=== PATIENT | female | born 1960 | race Caucasian/White ===

== ENCOUNTER → 2016-06-27 | Outpatient (CLI) | payer MEDICAID ==
--- NOTE | 2016-06-27 11:48 | XR ---
EXAMINATION TYPE: XR Hip Complete LT DATE OF EXAM: 06/27/2016 11:13 AM CLINICAL HISTORY: pain TECHNIQUE: AP and frogleg views of the left hip are obtained. COMPARISON: None. FINDINGS: There is no acute fracture/dislocation evident. The joint space appears within normal li mits. The overlying soft tissue appears unremarkable. IMPRESSION: 1. There is no acute fracture or dislocation.ICD 10 NO FRACTURE, INITIAL EVALUATION
== END ==
LOC: RADXRMAIN 10:39
PROVIDERS: ATTEND Family Medicine
DX: M25.552 Pain in left hip (principal)
CPT/HCPCS: 73502

== ENCOUNTER → 2016-08-03 | Outpatient (CLI) | payer MEDICAID ==
--- NOTE | 2016-08-03 11:06 | XR ---
EXAMINATION TYPE: XR foot complete RT DATE OF EXAM: 08/03/2016 10:26 AM CLINICAL HISTORY: Right foot pain and swelling, history of surgery 6 years ago, current study is foll ow up after more recent surgery TECHNIQUE: Weightbearing Frontal, lateral, and oblique images of the right foot are obtained. COMPARISON: Bilateral foot x-ray January 11, 2016. FINDINGS: There is persistent hallux valgus deformity first metatarsophalangeal joint. There is heal ed osteotomy with fixating screw in the first proximal phalanx. Alignment is stable. There is persistent distal osteotomy at level of the third proximal phalanx. Alignment at this level is stable. There is interval surgery with new ossific fusion or bridging at the second PIP joint. Alignment is s atisfactory. Remainder of right foot shows demineralization. There is moderate to severe spurring at mid foot leve l seen most prominent on lateral view with mild to moderate joint space loss. There are small size daniel perior and inferior calcaneal spurs redemonstrated. Slight pes planus deformity is seen on nonweightb earing lateral view. IMPRESSION: Interval surgery second toe with ossific fusion and satisfactory alignment now present.
== END | disposition home or self-care (01) ==
LOC: RADXRMAIN 10:04
PROVIDERS: ATTEND Podiatrist Foot & Ankle Surgery
DX: M25.80 Other specified joint disorders, unspecified joint (principal); Z98.890 Other specified postprocedural states

== ENCOUNTER → 2017-02-09 | Outpatient (CLI) | payer MEDICAID ==
--- NOTE | 2017-02-09 23:17 | MR ---
EXAMINATION TYPE: MR lumbar spine wo con DATE OF EXAM: 02/09/2017 COMPARISON: NONE HISTORY: Low back pain with Left leg pain x1 year TECHNIQUE: Multiplanar, multisequence images of the lumbar spine were acquired. Findings There is 1 cm anterior subluxation of L5 in relation S1. There is narrowing of disc spaces throughout the lumbar spine. There is developmentally adequate spinal canal and no spinal stenosis. There is sm all posterior disc bulge at L4-5. Lumbar nerve roots appear normal. The neural foramina are fairly we ll-maintained. There is probably L5 spondylolysis. There is no lumbar paraspinal mass. I see no focal bone destruction. IMPRESSION: Multilevel spondylosis. First-degree L5-S1 spondylolisthesis with probable L5 spondylolysis. No acute fracture. No spinal stenosis.
== END | disposition home or self-care (01) ==
LOC: RADMRIMAIN 16:59
PROVIDERS: ATTEND Psychiatry & Neurology Neurology
DX: M43.17 Spondylolisthesis, lumbosacral region (principal); M47.816 Spondylosis without myelopathy or radiculopathy, lumbar region
CPT/HCPCS: 72148

== ENCOUNTER → 2017-05-29 | Outpatient (CLI) | payer MEDICAID ==
--- NOTE | 2017-05-29 22:32 | MR ---
EXAMINATION TYPE: MR shoulder RT wo con DATE OF EXAM: 05/29/2017 COMPARISON: Outside radiographs 05/10/2017 HISTORY: 57-year-old female with right shoulder pain TECHNIQUE: Multiplanar, multisequence imaging of the right shoulder is performed without contrast. FINDINGS: There is linear intrasubstance signal involving the intracapsular portion of the long head biceps ten don. Intrasubstance signal extends along the extracapsular portion and there is slight medial subluxa tion long the upper bicipital groove. There is intermediate signal soft tissue thickening along the b icipital groove. Heterogeneous signal of the subscapularis tendon with attritional tearing of the superior half fibers . The majority of the subscapularis tendon remains intact. Moderate to severe joint space narrowing with marginal spurring at the acromioclavicular joint. Infer ior spurring just contacts the myotendinous junction of the supraspinatus tendon. There is bursal sided fraying of the cuff and extensive heterogeneous thickening involving both supra spinatus and infraspinatus tendons. Irregular tear involves the junction of the supraspinatus and inf raspinatus tendons measuring 1.1 cm AP and 1 cm long and is located proximal to the footprint, refer to coronal T2 FS image 17. Heterogeneous intermediate signal intensity material fills the glenohumeral joint, the superior subsc apularis recess, and extends into the superior myotendinous junction of the infraspinatus tendon wher e a masslike appearance is present measuring 2.1 x 1.2 x 2.2 cm. No calcifications are seen on radiog raphs. There is mild thinning of inferior humeral head articular cartilage and a moderate effusion and assoc iated synovitis. There is abnormal signal extending into the superior posterior labrum with a a 9 x 4 mm para labral c yst, sagittal T2 FS image 11 and coronal T2 FS image 16. Mild effusion within the subacromial/subdeltoid bursa and additional mild effusion in the subcoracoid bursa. No significant atrophy of the rotator cuff musculature. No Hill-Sachs deformity or os acromiale. Patchy red marrow hyperplasia is present and can be seen in setting of anemia, obesity, smoking, and chronic disease. No suspicious bone marrow replacement. IMPRESSION: 1. Severe diffuse rotator cuff tendinosis. There is an irregular tear proximal to the footprint at th e junction of the supraspinatus and infraspinatus tendons measuring 1.1 x 1.0 cm that is suspected to have full thickness extension. No rotator cuff muscle atrophy. 2. Mild attritional tearing of the superior half subscapularis tendon allowing slight medial subluxat ion of the long head biceps tendon. 3. Linear intrasubstance tear of the long head biceps tendon. Small SLAP tear and a 9 mm paralabral c yst. 4. Moderate glenohumeral joint effusion, mild bursal effusion, and a moderate to severe synovitis. No dular synovitis and inflammatory arthropathy such as RA are not excluded from the differential. Clini shellie correlate. 5. Moderate to severe AC joint OA with a prominent inferior spur.
== END | disposition home or self-care (01) ==
LOC: RADMRIMAIN 09:34
PROVIDERS: ATTEND Orthopaedic Surgery
DX: M25.511 Pain in right shoulder (principal); M65.9 Synovitis and tenosynovitis, unspecified; M19.011 Primary osteoarthritis, right shoulder

== ENCOUNTER → 2017-06-26 | Outpatient (CLI) | payer MEDICAID | END | disposition home or self-care (01) | LOC: LABWHC1 08:42 | PROVIDERS: ATTEND Internal Medicine Cardiovascular Disease | DX: E78.5 Hyperlipidemia, unspecified (principal) | CPT/HCPCS: 36415; 83704 ==

== ENCOUNTER → 2017-09-18 | Outpatient (CLI) | payer MEDICAID ==
[2017-09-18 08:43] LABS: Basophils # (A) 0.1 k/uL (0-0.2); Basophils % (A) 1 %; Eosinophils # (A) 0.5 k/uL (0-0.7); Eosinophils % (A) 12 %; HCT 41.6 % (34.0-46.0); HGB 14.3 gm/dL (11.4-16.0); Lymphocytes # (A) 1.7 k/uL (1.0-4.8); Lymphocytes % (A) 39 %; MCH 31.4 pg (25.0-35.0); MCHC 34.4 g/dL (31.0-37.0); MCV 91.3 fL (80.0-100.0); Mean Platelet Volume 6.9; Monocytes # (A) 0.3 k/uL (0-1.0); Monocytes % (A) 7 %; Neutrophils # (A) 1.7 k/uL (1.3-7.7); Neutrophils % (A) 39 %; Platelet Count 227 k/uL (150-450); RBC 4.56 m/uL (3.80-5.40); RDW 12.7 % (11.5-15.5); WBC 4.4 k/uL (3.8-10.6)
[2017-09-18 09:28] LABS: Potassium 4.3 mmol/L (3.5-5.1)
== END | disposition home or self-care (01) ==
LOC: LABPAT 07:53
PROVIDERS: ATTEND Orthopaedic Surgery
DX: Z01.812 Encounter for preprocedural laboratory examination (principal); M75.41 Impingement syndrome of right shoulder; Z01.818 Encounter for other preprocedural examination
CPT/HCPCS: 36415; 80051; 85025; 93005

== ENCOUNTER 2017-10-03 08:19 | Day surgery (SDC) | payer MEDICAID ==
[2017-09-26 17:17] VITALS: BMI 26.6
--- NOTE | 2017-10-02 13:44 | HP ---
HISTORY AND PHYSICAL DATE OF SURGERY: 10/03/2017 Christine Rodriguez is a 57-year-old patient seen with progressive right shoulder pain. Treatment options were discussed. She elected to proceed with right shoulder arthroscopy. Consent was obtained. PAST MEDICAL HISTORY: Depression, hyperlipidemia. PAST SURGICAL HISTORY: Carpal tunnel release, foot surgery. DAILY MEDICATIONS: 1. Atorvastatin. 2. Cyclobenzaprine. 3. Multivitamins. ALLERGIES: Allergies are DILAUDID. SOCIAL HISTORY: Patient denies current tobacco use. PHYSICAL EVALUATION: Physical evaluation right shoulder: Flexion 120 degrees. Abduction is 90 degrees. External rotation is 45 degrees with pain and weakness. Tenderness along the anterior lateral acromion and rotator cuff insertion. Impingement positive at 90 degrees. Drop- arm sign positive. Distal neurovascular exam intact. RADIOGRAPHS: Radiographs of the right shoulder revealed acromioclavicular joint osteoarthritis, cystic changes of the tuberosity. Right shoulder MRI revealed rotator cuff tear, biceps tear, labral tear and acromioclavicular joint osteoarthritis. IMPRESSION: 1. Right shoulder impingement with rotator cuff tear. 2. Right shoulder acromioclavicular joint osteoarthritis. 3. Depression. 4. Hyperlipidemia. PLAN: Right shoulder arthroscopy, subacromial decompression, possible arthroscopic rotator cuff repair, probable biceps tendon release and debridement. MMODL / IJN: [id number] /
[~2017-10-03 08:19] MED LIST: ONDANSETRON 4 MG/2 ML VIAL IVP PRN; ceFAZolin IN SWFI 2 GM/20 ML SYRINGE IVP ONE; fentaNYL (PF) 50 MCG/ML 2 ML AMP IV PRN
[2017-10-03 09:07] VITALS: RESP 16
[2017-10-03] MEDS: LACTATED RINGERS 1,000 ML IV SCH ×2 (09:07→12:30)
[2017-10-03] MEDS ORDERED: MIDAZOLAM 2 MG/2 ML VIAL ONE ×2 (09:15→10:44)
[2017-10-03] MEDS ORDERED: ONDANSETRON 4 MG/2 ML VIAL ONE (09:15)
[2017-10-03] MEDS ORDERED: ROPIVACAINE 5 MG/ML 30 ML VIAL ONE (10:44)
[2017-10-03] MEDS ORDERED: LIDOCAINE 1% INJ 10MG/ML (20 ML MDV) ONE (10:44)
[2017-10-03] MEDS ORDERED: fentaNYL (PF) 50 MCG/ML 2 ML AMP ONE (10:44)
[2017-10-03] MEDS ORDERED: SUCCINYLCHOLINE CHLORIDE 100 MG/5 ML SYR IV ONE (10:44)
[2017-10-03] MEDS ORDERED: PROPOFOL 10 MG/ML 20 ML VIAL IV ONE (10:44)
--- NOTE | 2017-10-03 12:13 | P.OP ---
Date of Procedure: 10/03/17 Preoperative Diagnosis: Right shoulder impingement Postoperative Diagnosis: 1. Right shoulder rotator cuff tear 2. Right shoulder impingement 3. Right shoulder acromioclavicular joint osteoarthritis 4. Right shoulder partial long head biceps tendon tear 5. Right shoulder superficial labral tear Procedure(s) Performed: 1. Right shoulder arthroscopic rotator cuff repair 2. Right shoulder arthroscopic subacromial decompression 3. Right shoulder arthroscopic Stephanie procedure 4. Right shoulder arthroscopic biceps tenotomy 5. Right shoulder arthroscopic debridement labral tear Implants: 15.5 Arthrex swivel lock anchor Anesthesia: GETA, regional (Interscalene block) Surgeon: Crow Ribeiro Estimated Blood Loss (ml): 10 Pathology: none sent Condition: stable Disposition: PACU Indications for Procedure: 57-year-old patient seen with progressive right shoulder pain. After having treatment options discussed, she elected to proceed with arthroscopy. Operative Findings: see description of procedure Description of Procedure: Patient underwent a shoulder block by department of anesthesia. The patient was then taken to the operative suite. The patient underwent a general anesthetic by the department of anesthesia. The patient was placed into a lateral position and secured. There was appropriate padding of the bony prominence. Right shoulder was then prepped and draped in normal sterile orthopedic fashion. We placed the extremity in 10 pounds of longitudinal traction. A posterior incision was now made for a posterior working portal site. The trocar and cannula were inserted into the glenohumeral joint. Arthroscopy was initiated. Spinal needle was now inserted anteriorly, to ascertain the anterior working portal site. An incision was now made in that area, a trocar was inserted followed by a probe. There was superficial tearing of the superior labrum. There was no obvious rotator cuff tear visualized from the glenohumeral side. There was partial tearing long head biceps tendon with some hyperemia. The remaining labrum appeared intact. There were mild grade 1 chondromalacia changes with no osteochondral tears. I performed a biceps tenotomy. I debrided the superficial labral tear down to stable tissue. Instruments were removed from the glenohumeral joint. Utilizing the posterior working portal site, the trocar and cannula were inserted into the subacromial space. Arthroscopy initiated. I made an incision 2 fingerbreadths lateral to the acromion. I introduced my trocar followed by my ArthroCare ablator. I now began ablating thick subacromial bursal tissue, which exposed the undersurface of the anterior acromion. This was diminished subacromial space. There was a very prominent anterior acromion. A motorized bur was introduced and a subacromial decompression was performed. I also excised some osteophytes off the inferior aspect of the distal clavicle. The AC joint was visualized and noted to be fairly arthritic. Our motorized bur was introduced in the anterior portal site and a Stephanie procedure was performed without difficulty, decompressing the AC joint nicely. I turned my attention to the rotator cuff. There was a rotator cuff tear visualized along the distal supraspinatus. I debrided the margins gained down the stable tendon tissue. The tear measured about 1.5 cm. I abraded the footprint with a motorized bur. I passed 2 everted mattress sutures through good bites of rotator cuff tendon. I repaired the tendon right back to the footprint with one single 5.5 Arthrex swivel lock anchor. This compressed the tendon along the footprint nicely. Suture limbs were clipped. The repair was probed and found to be stable. I injected 1 mL Renue intra-articular. Instruments now removed from the portal sites. All portal sites were approximated with nylon sutures. Sterile dressings were applied followed by a shoulder immobilizer. The patient was awakened, transferred to a bed, and taken to recovery in stable condition.
[2017-10-03 12:22] VITALS: TEMP 97
[2017-10-03 13:32] VITALS: BP 119/78; PULSE 64
--- NOTE | 2017-10-03 19:45 | P.ONQ ---
Anesthesiology Proc Note - PNB - Peripheral Nerve Block Performed Right Interscalene Procedure Start Time: 09:47 Procedure Stop Time: 10:02 Indication: Acute Post-Operative Pain, Requested by physician (Gema) Sedation Type: Sedate with meaningful contact maintained Preparation: Sterile Prep Position: Supine Catheter: None Needle Types: Other (see comment) (Efe) Needle Size: 50mm (2") Needle Gauge: 21 Technique: Ultrasound Blood Aspirated: No Pain Paresthesia on Injection Noted: No Resistance on Injection: Normal Events: Uneventful and Well Tolerated (0.5% Ropivacaine 14cc 2% Lidocaine with 1 :200,000 epi 14cc)
== END 2017-10-03 14:27 | disposition home or self-care (01) ==
LOC: OR 08:19
PROVIDERS: ATTEND Orthopaedic Surgery
DX: M75.101 Unspecified rotator cuff tear or rupture of right shoulder, not specified as traumatic (principal); M75.41 Impingement syndrome of right shoulder; M19.011 Primary osteoarthritis, right shoulder; S46.111A Strain of muscle, fascia and tendon of long head of biceps, right arm, initial encounter; S43.491A Other sprain of right shoulder joint, initial encounter; X58.XXXA Exposure to other specified factors, initial encounter; M94.211 Chondromalacia, right shoulder; M25.711 Osteophyte, right shoulder; F32.9 Major depressive disorder, single episode, unspecified; E78.5 Hyperlipidemia, unspecified; G43.909 Migraine, unspecified, not intractable, without status migrainosus; Z79.899 Other long term (current) drug therapy; Z79.1 Long term (current) use of non-steroidal anti-inflammatories (NSAID); Z88.5 Allergy status to narcotic agent; Z87.891 Personal history of nicotine dependence
CPT/HCPCS: 64415; 29824; 29827; 29826; C1713; C1765; J2250; J2405; J2001; J3010; J2795; J0330; J2704; J0690

== ENCOUNTER → 2018-03-14 | Outpatient (CLI) | payer MEDICAID ==
--- NOTE | 2018-03-18 09:34 | MM ---
Reason for exam: screening (asymptomatic). Last mammogram was performed 2 years ago. History: Patient is postmenopausal. Excisional biopsy of the left breast, 2003. Physical Findings: A clinical breast exam by your physician is recommended on an annual basis and results should be correlated with mammographic findings. MG 3D Screening Mammo W/Cad Bilateral CC and MLO view(s) were taken. Prior study comparison: March 16, 2016, bilateral MG screening mammo w CAD. September 03, 2014, bilateral MG screening mammo w CAD. The breast tissue is heterogeneously dense. This may lower the sensitivity of mammography. No significant changes when compared with prior studies. ASSESSMENT: Benign, BI-RAD 2 RECOMMENDATION: Routine screening mammogram of both breasts in 1 year.
== END | disposition home or self-care (01) ==
LOC: RADMAMWWP 13:08
PROVIDERS: ATTEND Internal Medicine Geriatric Medicine
DX: Z12.31 Encounter for screening mammogram for malignant neoplasm of breast (principal)
CPT/HCPCS: 77063; 77067

== ENCOUNTER → 2018-10-15 | Outpatient (CLI) | payer MEDICAID ==
--- NOTE | 2018-10-15 14:45 | BD ---
EXAMINATION TYPE: Axial Bone Density DATE OF EXAM: 10/15/2018 COMPARISON: 01/08/2012 CLINICAL HISTORY: disorder of bone Height: 5'6 Weight: 174 FRAX RISK QUESTIONS: History of Fracture in Adulthood: y Secondary Osteoporosis: RISK FACTORS HISTORY OF: Family History of Osteoporosis: y Active: n Postmenopausal woman: y MEDICATIONS: Additional Medications: cholesterol, migraines, Additional History: EXAM MEASUREMENTS: Bone mineral densitometry was performed using the Dasdak System. Bone mineral density as measured about the Lumbar spine is: ----- L1-L4(G/cm2): 1.074 T Score Values are as follows: ----- L2: -1.3 ----- L3: -1.6 ----- L4: -0.7 ----- L1-L4: -0.9 Bone mineral density has: Decreased -3.7% since study of: 01/08/2012 Bone mineral density about the R hip (g/cm2): 0.962 Bone mineral density about the L hip (g/cm2): 0.959 T Score values are as follows: -----R Neck: -0.5 -----L Neck: -0.6 -----R Total: -0.5 -----L Total: -0.3 Bone mineral density has: Decreased -3.8% since study of: 01/08/2012 IMPRESSION: Osteopenia (T Score between -2.5 and -1). There is slightly increased risk of fracture and the patient may be considered for treatment. Re-Screen 2-5 years. NOTE: T-SCORE=SD OF THE YOUNG ADULT MEAN.
== END | disposition home or self-care (01) ==
LOC: RADBDWWP 13:05
PROVIDERS: ATTEND Obstetrics & Gynecology
DX: M85.88 Other specified disorders of bone density and structure, other site (principal)
CPT/HCPCS: 77080

== ENCOUNTER → 2021-02-01 | Outpatient (CLI) | payer MEDICAID ==
--- NOTE | 2021-02-01 09:14 | XR ---
EXAMINATION TYPE: XR Hip Complete LT DATE OF EXAM: 02/01/2021 COMPARISON: For 1117 HISTORY: Pain TECHNIQUE: 2 views submitted FINDINGS: There is no evidence of erosive change or acute fracture. Mild axial narrowing of the joint space. Hypertrophic changes involving the greater trochanter. Ostei tis pubis condensans. IMPRESSION: 1. Mild arthropathy. Hypertrophic spur along the greater trochanter could be associated with trochant james bursitis correlate clinically and with MRI as clinically warranted. Findings similar to prior ex am.
--- NOTE | 2021-02-01 09:15 | XR ---
EXAM TYPE: LUMBAR SPINE X RAY SERIES COMPARISON: NONE HISTORY: Pain TECHNIQUE: 3 views are submitted. FINDINGS: Alignment is anatomic. The pedicles are intact. The transverse processes are intact. There is hype rtrophic and degenerative changes spine with facet arthropathy noted involving the mid and lower lumb ar spine. A grade 1 anterolisthesis of L5 and S1 suspected bilateral spondylolysis. Calcification lef t upper quadrant could represent 5 mm left renal calculus. IMPRESSION: 1. Multilevel degenerative disc disease and facet arthropathy with grade 1 anterolisthesis L4 on L5 a nd L5 on S1. Suspect bilateral spondylolysis L5. 2. Probable 5 mm left renal calculus.
[2021-02-01 15:15] LABS: HCT 41.5 % (37.2-46.3); HGB 13.9 g/dL (12.0-15.0); MCH 31.6 pg (27.0-32.0); MCHC 33.5 g/dL (32.0-37.0); MCV 94.3 fL (80.0-97.0); Mean Platelet Volume 10.4 fL (9.5-12.2); Platelet Count 227 X 10*3/uL (140-440); RDW 12.5 % (11.5-14.5); WBC 3.67 X 10*3/uL (4.50-10.00)
[2021-02-01 18:39] LABS: ALT 22 U/L (8-44); AST 22 U/L (13-35); African American GFR (CKD) 81.1 (60.0-200.0); Albumin 4.6 g/dL (3.8-4.9); Alkaline Phosphatase 77 U/L (41-126); BUN/Creat Ratio 17.22 Ratio (12.00-20.00); Blood Urea Nitrogen 15.5 mg/dL (9.0-27.0); Calcium 9.4 mg/dL (8.7-10.3); Carbon Dioxide 19.5 mmol/L (21.6-31.8); Chloride 110 mmol/L (96-109); Chol/HDL Ratio 2.95 Ratio; Glucose 102 mg/dL (70-110); LDL Cholesterol,Calculated 107.9 mg/dL (0.0-131.0); Potassium 4.1 mmol/L (3.5-5.5); Sodium 143 mmol/L (135-145); Total Protein 6.6 g/dL (6.2-8.2)
== END | disposition home or self-care (01) ==
LOC: LABWHC1 08:15
PROVIDERS: ATTEND Family Medicine
DX: Z00.00 Encounter for general adult medical examination without abnormal findings (principal); E55.9 Vitamin D deficiency, unspecified; M19.90 Unspecified osteoarthritis, unspecified site; M79.605 Pain in left leg
CPT/HCPCS: 36415; 72100; 73502; 80053; 80061; 82306; 83036; 85027

== ENCOUNTER → 2021-03-01 | Outpatient (CLI) | payer MEDICAID ==
--- NOTE | 2021-03-03 11:46 | MM ---
Reason for exam: screening (asymptomatic). Last mammogram was performed 3 years ago. History: Patient is postmenopausal. Excisional biopsy of the left breast, 2003. Physical Findings: A clinical breast exam by your physician is recommended on an annual basis and results should be correlated with mammographic findings. MG 3D Screening Mammo W/Cad Bilateral CC and MLO view(s) were taken. Prior study comparison: March 14, 2018, bilateral MG 3d screening mammo w/cad. March 16, 2016, bilateral MG screening mammo w CAD. The breast tissue is heterogeneously dense. This may lower the sensitivity of mammography. There are benign appearing round calcifications bilaterally. There is no discrete abnormality. ASSESSMENT: Negative, BI-RAD 1 RECOMMENDATION: Routine screening mammogram of both breasts in 1 year.
== END | disposition home or self-care (01) ==
LOC: RADMAMWWP 08:59
PROVIDERS: ATTEND Obstetrics & Gynecology
DX: Z12.31 Encounter for screening mammogram for malignant neoplasm of breast (principal); Z78.0 Asymptomatic menopausal state
CPT/HCPCS: 77063; 77067

== ENCOUNTER 2021-07-04 20:43 | Emergency (ER) | payer MEDICAID ==
[2021-07-04 20:52] VITALS: BP 132/81; PULSE 78; RESP 18; TEMP 97.1
--- NOTE | 2021-07-04 21:43 | XR ---
EXAMINATION TYPE: XR ankle complete RT DATE OF EXAM: 07/04/2021 9:33 PM INDICATION: Patient age:Female; 61 years old; Reason for study: Pain; COMPARISON: None TECHNIQUE: The right ankle is imaged in 3 projections, AP lateral and oblique. FINDINGS: Osseous fragment off the tip of the lateral malleolus with adjacent soft tissue swelling Avulsion injury.. The joint spaces are well-preserved without evidence of subluxation or dislocation. Kager's fat pad is intact. Mild soft tissue swelling around the lateral ankle. No radiopaque foreign bodies are identified. Plantar calcaneal spur is present. IMPRESSION: Osseous fragment near the distal tip of the right fibula which is suspicious for avulsion injury. Cor relate with point tenderness.
[2021-07-04] MEDS ORDERED: IBUPROFEN 600 MG TAB PO STA (22:44)
--- NOTE | 2021-07-04 22:47 | ED ---
General Adult HPI - General Chief complaint: Extremity Injury, Lower Stated complaint: right ankle pain Time Seen by Provider: 07/04/21 22:25 Source: patient, RN notes reviewed, old records reviewed Mode of arrival: ambulatory Limitations: no limitations - History of Present Illness Initial comments: 61-year-old female presents with complaints of right ankle pain after slipping off 1 step while shoveling snow today. She is able to ambulate. No other injuries. -: hour(s) (2) Location: right, lower extremity Radiation: non-radiation Severity scale (1-10): 2 Consistency: intermittent Improves with: immobilization Worsens with: movement Associated Symptoms: denies other symptoms Treatments Prior to Arrival: none - Related Data Home Medications Medication Instructions Recorded Confirmed Atorvastatin [Lipitor] 10 mg PO HS 09/26/17 09/26/17 Biotin 10,000 mcg PO DAILY 09/26/17 09/26/17 Calcium Carbonate [Calcium] 600 mg PO DAILY 09/26/17 09/26/17 Cinnamon Bark [Cinnamon] 1,000 mg PO DAILY 09/26/17 09/26/17 Cyclobenzaprine [Flexeril] 10 mg PO HS 09/26/17 09/26/17 Glucosamine Sulfate 2,000 mg PO HS 09/26/17 09/26/17 Ibuprofen 400 mg PO DAILY PRN 09/26/17 09/26/17 Multivit with Calcium,Iron,Min 1 each PO DAILY 09/26/17 09/26/17 [Women's Multivitamin] Warren-3 Fatty Acids/Fish Oil [Fish 1,400 mg PO DAILY 09/26/17 09/26/17 Oil 1,000 mg Softgel] Potassium Otc 1 dose PO DAILY 09/26/17 09/26/17 Topiramate [Trokendi Xr] 100 mg PO QAM 09/26/17 10/03/17 Previous Rx's Medication Instructions Recorded HYDROcodone/APAP 7.5-325MG [Speonk 1 each PO Q6HR PRN #28 tab 10/03/17 7.5] Ibuprofen [Motrin] 600 mg PO Q8HR PRN #20 tab 07/04/21 Allergies Allergy/AdvReac Type Severity Reaction Status Date / Time hydromorphone HCl Allergy Unknown TWITCHING Verified 07/04/21 20:52 [From Dilaudid] Review of Systems ROS Statement: Those systems with pertinent positive or pertinent negative responses have been documented in the HPI. ROS Other: All systems not noted in ROS Statement are negative. 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 History of Any Multi-Drug Resistant Organisms: None Reported Past Surgical History: Orthopedic Surgery Additional Past Surgical History / Comment(s): RT HAMMER TOE & BUNIONECTOMY, EDISON CARPAL TUNNEL, LEFT BREAST CYST. Past Anesthesia/Blood Transfusion Reactions: No Reported Reaction, Family History of Problems w/ Anesthesia Additional Past Anesthesia/Blood Transfusion Reaction / Comment(s): PTS DAUGHTER=PONV Past Psychological History: Depression Smoking Status: Never smoker Past Alcohol Use History: Rare Past Drug Use History: None Reported - Past Family History Father Family Medical History: Cancer General Exam Limitations: no limitations General appearance: alert, in no apparent distress Head exam: Present: atraumatic Respiratory exam: Present: normal lung sounds bilaterally. Absent: respiratory distress, accessory muscle use Cardiovascular Exam: Present: regular rate, normal rhythm Right Lower Leg exam: Absent: tenderness, swelling, erythema, Homans' sign Ankle exam: Present: tenderness (Right lateral malleolus), swelling. Absent: abrasion, laceration, ecchymosis, deformity, crepitus, dislocation, erythema Foot/Toe exam: Absent: tenderness, swelling, ecchymosis, deformity, calcaneal tenderness, tenderness at base of 5th metatarsal Neurovascular tendon exam: Present: no vascular compromise. Absent: pulse deficit, abnormal cap refill, motor deficit, sensory deficit, extremity cold to touch, pallor, foot drop Neurological exam: Present: alert, oriented X3 Psychiatric exam: Present: normal affect, normal mood Skin exam: Present: warm, dry, intact, normal color. Absent: rash, cyanosis, diaphoretic, petechiae, pallor Course Vital Signs 07/04/21 20:50 Temperature 97.1 F L Pulse Rate 78 Respiratory 18 Rate Blood Pressure 132/81 O2 Sat by Pulse 97 Oximetry Medical Decision Making - Medical Decision Making Patient slipped off one step today rolling her right ankle. Presents with right lateral ankle pain and swelling. X-ray shows a small osseous fragment near the distal tip of the right fibula likely avulsion injury. This is the area of patient's pain and swelling. She is able to ambulate with minimal pain. She was placed in a stirrup splint directed to follow-up with orthopedic associates. Rest, ice, elevate and take Motrin as needed for pain. Return to the emergency room with any new or concerning symptoms including increased pain, inability to ambulate or numbness and tingling. Patient and family member are agreeable to this plan of care. Disposition Clinical Impression: Avulsion fracture of distal fibula Disposition: HOME SELF-CARE Condition: Good Instructions (If sedation given, give patient instructions): Ankle Fracture (ED) Additional Instructions: Rest, ice, elevate and take Motrin as needed for pain. Return to the emergency room with any new or concerning symptoms including increased pain, inability to ambulate or numbness and tingling. Follow-up with orthopedic associates this week. Prescriptions: Ibuprofen [Motrin] 600 mg PO Q8HR PRN #20 tab PRN Reason: Pain Is patient prescribed a controlled substance at d/c from ED?: No Referrals: Geo Cool DO [Primary Care Provider] - 1-2 days Eriberto Dixon MD [Medical Doctor] - 1-2 days Time of Disposition: 22:47
== END 2021-07-04 23:26 | disposition home or self-care (01) ==
LOC: EC 20:43
DX: S82.831A Other fracture of upper and lower end of right fibula, initial encounter for closed fracture (principal); E78.5 Hyperlipidemia, unspecified; Z88.5 Allergy status to narcotic agent; Z79.899 Other long term (current) drug therapy; W01.0XXA Fall on same level from slipping, tripping and stumbling without subsequent striking against object, initial encounter; Y93.H1 Activity, digging, shoveling and raking
CPT/HCPCS: 29515; 99283

== ENCOUNTER → 2022-06-06 | Outpatient (CLI) | payer MEDICAID ==
--- NOTE | 2022-06-06 13:19 | BD ---
EXAMINATION TYPE: Axial Bone Density DATE OF EXAM: 06/06/2022 CLINICAL HISTORY: 62 year old Female. ICD-10 CODE: M85.88 OTH DISRD OF BONE DENSI Height: 66 Weight: 194.0 FRAX RISK QUESTIONS: Alcohol (3 or more units per day): no Family History (Parent hip fracture): yes Glucocorticoids (More than 3mos): no (Ex: prednisone, prednisolone, methylprednisolone, dexamethasone, and hydrocortisone). History of Fracture in Adulthood: no Secondary Osteoporosis: 1. Type 1 Diabetes: no 2. Hyperthyroidism: no 3. Menopause before 45: no 4. Malnutrition: no 5. Chronic liver disease: no Rheumatoid Arthritis: no Current Tobacco Use: no RISK FACTORS HISTORY OF: Surgery to Spine/Hip(right/left)/Wrist (right/left): no Family History of Osteoporosis: yes Active: no Diet low in dairy products/other sources of calcium: no Postmenopausal woman: yes Lost more than 2 inches in height since high school: yes MEDICATIONS: Additional History: EXAM MEASUREMENTS: Bone mineral densitometry was performed using the [employer] System. Bone mineral density as measured about the Lumbar spine is: ----- L1-L4(G/cm2): 1.136 T Score Values are as follows: ----- L1: 0.6 ----- L2: -0.7 ----- L3: -1.3 ----- L4: -0.2 ----- L1-L4: -0.4 Z Score Values are as follows: ----- L1: 1.1 ----- L2: -0.2 ----- L3: -0.8 ----- L4: 0.3 ----- L1-L4: 0.1 Bone mineral density has: increased 5.8 % since study of: 10.15.2018 Bone mineral density about the R hip (g/cm2): 0.963 Bone mineral density about the L hip (g/cm2): 0.994 T Score values are as follows: -----R Neck: -0.6 -----L Neck: -0.5 -----R Total: -0.4 -----L Total: -0.1 Z Score values are as follows: -----R Neck: 0.2 -----L Neck: 0.2 -----R Total: 0.1 -----L Total: 0.3 Bone mineral density has: increased 2.0 % since study of: 10.15.2018 FRAX%s: The graph provided illustrates a 13.3% chance for a major osteoporotic fx and a 0.3% chance f or the hips probability for fx in 10 years time. IMPRESSION: Normal (Values between +1 and -1 indicate normal bone mass). Consider repeating this study in 5 year s or sooner if there is some new clinical indication. NOTE: T-SCORE=SD OF THE YOUNG ADULT MEAN.
--- NOTE | 2022-06-07 08:01 | MM ---
Reason for Exam: Screening (asymptomatic). Last mammogram was performed 1 year(s) and 3 month(s) ago. Patient History: Menarche at age 14. First Full-Term at age 24. Postmenopausal. 2003, Excisional Biopsy on the Left side. Risk Values: Evelyn 5 year model risk: 1.6%. NCI Lifetime model risk: 7.5%. Prior Study Comparison: 03/16/2016 Bilateral Screening Mammogram, [facility]. 03/14/2018 Bilateral Screening Mammogram, [facility]. 03/01/2021 Bilateral Screening Mammogram, [facility]. Tissue Density: The breast tissue is heterogeneously dense. This may lower the sensitivity of mammography. Findings: Analyzed By CAD. There is no suspicious group of microcalcifications or new suspicious mass in either breast. Overall Assessment: Negative, BI-RAD 1 Management: Screening Mammogram of both breasts in 1 year. A clinical breast exam by your physician is recommended on an annual basis and results should be correlated with mammographic findings. Electronically signed and approved by: Zack Chilel M.D. Radiologis
== END | disposition home or self-care (01) ==
LOC: RADMAMWWP 09:50
PROVIDERS: ATTEND Obstetrics & Gynecology
DX: Z12.31 Encounter for screening mammogram for malignant neoplasm of breast (principal); M85.88 Other specified disorders of bone density and structure, other site; Z78.0 Asymptomatic menopausal state
CPT/HCPCS: 77063; 77067; 77080

== ENCOUNTER → 2022-09-25 | Outpatient (CLI) | payer MEDICAID ==
--- NOTE | 2022-09-25 14:41 | MR ---
EXAMINATION TYPE: MR knee LT wo con DATE OF EXAM: 09/25/2022 COMPARISON: None HISTORY: Lt knee pain TECHNIQUE: Multiplanar, multisequence imaging of the left knee is performed without IV contrast. FINDINGS: MEDIAL MENISCUS: Anterior and posterior horns demonstrate normal signal. LATERAL MENISCUS: There is radial tear involving the anterior horn lateral meniscus. Posterior alignm ent appears to be intact. CRUCIATE LIGAMENTS: There is increased signal within the ACL at its tibial insertion felt to reflect chronic partial tear. The remainder of the ACL appears unremarkable. PCL is intact. COLLATERAL LIGAMENTS: The medial collateral ligament and lateral collateral ligament complex are inta ct and unremarkable. EXTENSOR MECHANISM: Visualized quadriceps and patellar tendons are intact. EFFUSION: No significant suprapatellar joint effusion. POPLITEAL CYST: No popliteal/phillips cyst. TRICOMPARTMENT SPACES: Mild to moderate narrowing lateral tibiofemoral joint space. The medial tibiof emoral joint space and patellar femoral joint spaces appear to be within normal limits for the patien t's age group. Mild subchondral cyst formation tibial plateau. CARTILAGE: Intact BONE MARROW SIGNAL: Increased bone marrow signal involving the lateral tibial plateau felt to reflect underlying bone marrow edema. OTHER: No additional significant abnormality is appreciated. IMPRESSION: 1. Suspected radial tear anterior horn lateral meniscus. 2. Chronic partial tear ACL. 3. Bone marrow edema lateral tibial plateau with degenerative narrowing and subchondral cyst formatio n
== END | disposition home or self-care (01) ==
LOC: RADMRIMAIN 11:01
PROVIDERS: ATTEND Orthopaedic Surgery
DX: S83.512A Sprain of anterior cruciate ligament of left knee, initial encounter (principal); M17.12 Unilateral primary osteoarthritis, left knee; R60.9 Edema, unspecified

== ENCOUNTER → 2022-11-07 | Outpatient (CLI) | payer MEDICAID ==
[2022-11-07 15:42] LABS: Basophils # (A) 0.06 X 10*3/uL (0.00-0.10); Basophils % (A) 1.5 %; Eosinophils # (A) 0.19 X 10*3/uL (0.04-0.35); Eosinophils % (A) 4.8 %; HCT 43.3 % (37.2-50.0); HGB 14.2 d/dL (12.0-17.0); Lymphocytes # (A) 1.71 X 10*3/uL (0.90-5.00); MCH 30.8 pg (27.0-32.0); MCHC 32.8 d/dL (32.0-37.0); MCV 93.9 FL (80.0-97.0); Mean Platelet Volume 10.8 FL (9.5-12.2); Monocytes % (A) 10.1 %; NRBC Per 100 WBC 0 X 10*3/uL (0.00-0.01); Neutrophils % (A) 40.1 %; Platelet Count 219 X 10*3/uL (140-440); RBC 4.61 X 10*6/uL (4.10-5.60); RDW 13.1 % (11.5-14.5); WBC 3.98 X 10*3/uL (4.50-10.00)
[2022-11-07 15:48] LABS: Anion Gap 10.5 mmol/L (4.00-12.00); Carbon Dioxide 25.5 mmol/L (21.6-31.8); Potassium 5.2 mmol/L (3.5-5.5)
== END | disposition home or self-care (01) ==
LOC: LABPAT 08:56
PROVIDERS: ATTEND Orthopaedic Surgery
DX: Z01.818 Encounter for other preprocedural examination (principal); M23.92 Unspecified internal derangement of left knee; I44.4 Left anterior fascicular block; R94.31 Abnormal electrocardiogram [ECG] [EKG]
CPT/HCPCS: 80051; 85025; 93005

== ENCOUNTER → 2023-04-20 | Outpatient (CLI) | payer MEDICAID ==
--- NOTE | 2023-04-20 22:57 | MR ---
EXAMINATION TYPE: MR brain wo con DATE OF EXAM: 04/20/2023 COMPARISON: NONE HISTORY: Migraines, Hearing changes in both ears TECHNIQUE: Multiplanar, multisequence imaging of the brain and brainstem is performed without IV cont rast. FINDINGS: Diffusion weighted images demonstrate no evidence of a recent infarct or other diffusion abnormality. The ventricular system and cisternal spaces are normal in size and appearance. The brain volume is a ge appropriate. Occasional tiny focus of T2 hyperintensity is seen throughout the white matter bilate rally. Approximately 3-4 scattered lesions are seen. The lesions are nonspecific in appearance and di stribution. Midline structures demonstrate normal morphology. The craniocervical junction appears within normal limits. Normal vascular flow voids are present. Mild mucosal thickening involving anterior ethmoid si nuses bilaterally. Nasal septum is deviated to right of midline. No suspicious opacification of the m astoid air cells. IMPRESSION: Minimal nonspecific white matter changes. Mild anterior chronic ethmoid sinus disease.
== END | disposition home or self-care (01) ==
LOC: RADMRIMAIN 21:45
PROVIDERS: ATTEND Psychiatry & Neurology Neurology
DX: J32.2 Chronic ethmoidal sinusitis (principal); R90.82 White matter disease, unspecified; G43.009 Migraine without aura, not intractable, without status migrainosus
CPT/HCPCS: 70551

== ENCOUNTER → 2023-09-25 | Outpatient (CLI) | payer MEDICAID ==
--- NOTE | 2023-10-03 09:06 | MM ---
Reason for Exam: Screening (asymptomatic). Last mammogram was performed 1 year(s) and 4 month(s) ago. Patient History: Menarche at age 14. First Full-Term at age 24. Postmenopausal. 2003, Excisional Biopsy on the Left side. Risk Values: Evelyn 5 year model risk: 1.6%. NCI Lifetime model risk: 7.3%. Prior Study Comparison: 03/14/2018 Bilateral Screening Mammogram, [facility]. 03/01/2021 Bilateral Screening Mammogram, [facility]. 06/06/2022 Bilateral MG 3D screening mammo w/cad, [facility]. Tissue Density: There are scattered areas of fibroglandular density. Findings: Analyzed By CAD. The pattern is symmetrical. No significant interval change is evident. Chronic Nodularity is in the upper outer left breast. No suspicious groups of microcalcifications, spiculated or lobular masses, architectural distortion or other secondary signs of malignancy are mammographically apparent. Overall Assessment: Benign, BI-RAD 2 Management: Screening Mammogram of both breasts in 1 year. A negative mammogram report should not preclude additional follow up of suspicious palpable abnormalities. Patient should continue monthly self breast exam. A clinical breast exam by your physician is recommended on an annual basis and results should be correlated with mammographic findings. Note on Evelyn scores and lifetime risk: 1. A Evelyn score greater than 3% is considered moderate risk. If this is the case, consider specialist referral to assess eligibility for a risk reducing agent. 2. If overall lifetime risk for the development of breast cancer is 20% or higher, the patient may qualify for future screening with alternating mammogram and breast MRI. Electronically signed and approved by: Dhruv Galdamez D.O. Radiologis
== END | disposition home or self-care (01) ==
LOC: RADMAMWWP 07:09
PROVIDERS: ATTEND Family Medicine
DX: Z12.31 Encounter for screening mammogram for malignant neoplasm of breast (principal); R92.323 Mammographic fibroglandular density, bilateral breasts; Z78.0 Asymptomatic menopausal state
CPT/HCPCS: 77063; 77067

== ENCOUNTER → 2024-06-12 | Outpatient (CLI) | payer MEDICAID ==
--- NOTE | 2024-06-12 09:22 | XR ---
EXAMINATION TYPE: XR Hip Complete LT DATE OF EXAM: 06/12/2024 CLINICAL INDICATION: Female, 64 years old with history of R52 pain OA, Pain TECHNIQUE: AP and frogleg views of the left hip are obtained. COMPARISON: Left hip x-rays February 11, 2021 FINDINGS: There is no acute fracture/dislocation evident in the left hip. Stable mild/moderate axial joint space loss in the left hip. Femoral head shape is preserved. The overlying soft tissue appear s unremarkable. IMPRESSION: As above. No significant change from most recent prior. [facility], , 06/12/2024 9:19 AM
== END | disposition home or self-care (01) ==
LOC: RADXRMAIN 08:49
PROVIDERS: ATTEND Family Medicine
DX: M25.852 Other specified joint disorders, left hip (principal)
CPT/HCPCS: 73502

== ENCOUNTER → 2024-10-02 | Outpatient (CLI) | payer MEDICAID ==
--- NOTE | 2024-10-02 08:48 | MM ---
Reason for Exam: Screening (asymptomatic). Last screening mammogram was performed 12 month(s) ago. Patient History: Menarche at age 14. First Full-Term at age 24. Postmenopausal. 2003, Excisional Biopsy on the Left side. Risk Values: Evelyn 5 year model risk: 1.7%. NCI Lifetime model risk: 7.1%. Prior Study Comparison: 03/14/2018 Bilateral Screening Mammogram, [facility]. 03/01/2021 Bilateral Screening Mammogram, [facility]. 06/06/2022 Bilateral MG 3D screening mammo w/cad, [facility]. 09/25/2023 Bilateral MG 3D screening mammo w/cad, [facility]. Tissue Density: The breasts are heterogeneously dense, which may obscure small masses. Findings: Analyzed By CAD. There is no suspicious group of microcalcifications or new suspicious mass in either breast. Stable chronic nodularity. Overall Assessment: Benign, BI-RAD 2 Management: Screening Mammogram of both breasts in 1 year. . Patient should continue monthly self-breast exams. A clinical breast exam by your physician is recommended on an annual basis. This exam should not preclude additional follow-up of suspicious palpable abnormalities. Note on Evelyn scores and lifetime risk: 1. A Evelyn score greater than 3% is considered moderate risk. If this is the case, consider specialist referral to assess eligibility for a risk reducing agent. 2. If overall lifetime risk for the development of breast cancer is 20% or higher, the patient may qualify for future screening with alternating mammogram and breast MRI. [facility], , 10/02/2024 8:45 AM. Electronically signed and approved by: Adriel Hall M.D. Radiologis
== END | disposition home or self-care (01) ==
LOC: RADMAMWWP 07:04
PROVIDERS: ATTEND Family Medicine
DX: Z12.31 Encounter for screening mammogram for malignant neoplasm of breast (principal); R92.333 Mammographic heterogeneous density, bilateral breasts; Z78.0 Asymptomatic menopausal state
CPT/HCPCS: 77063; 77067